=== PATIENT | male | born 1990 | race Hispanic/Latino ===

== ENCOUNTER 2017-04-10 21:53 | Emergency (ER) | payer OTHER ==
[~2017-04-10] VITALS: Ht 182.9 cm; Wt 77.1 kg
[2017-04-10] MEDS ORDERED: METFORMIN HCL500 MG PO (22:16)
[2017-04-10] MEDS ORDERED: SODIUM CHLORIDE 0.9% 1000ML 1,000 ML IV SCH (22:45)
[2017-04-10] MEDS ORDERED: CEFTRIAXONE SOD 1 GM VIAL IV ONE (23:15)
== END 2017-04-11 00:14 | disposition home or self-care (01) ==
LOC: FSED 21:53
DX: R50.9 Fever, unspecified (principal); E86.0 Dehydration
CPT/HCPCS: 71046; 80053; 81003; 85025; 87400; 99284; J0696